=== PATIENT | male | born 1945 | race Caucasian/White ===

== ENCOUNTER 2018-10-13 12:31 | Inpatient (IN) ==
[2018-10-13] MEDS ORDERED: NS 1,000 ML IV ONE (14:19)
[2018-10-13] MEDS ORDERED: SODIUM CHLORIDE 0.9% INJ PRN (14:19)
[2018-10-13] MEDS: MORPHINE IV PRN ×2 (15:02→20:41)
[2018-10-13] MEDS: PHENERGAN IV PRN ×2 (15:02→20:40)
[2018-10-13] MEDS: LOVENOX SUBQ SCH (15:02)
[2018-10-13] MEDS: NS 1,000 ML IV SCH (16:10)
[2018-10-13] MEDS: FLAGYL 500 MG/NS 500 MG/100 ML IVPB IV SCH ×2 (16:11→20:40)
[2018-10-13] MEDS: HUMALOG SUBQ SCH ×2 (16:18→22:29)
[2018-10-13] MEDS: LEVAQUIN 250 MG/D5W 250 MG/50 ML IVPB IV SCH (17:24)
--- NOTE | 2018-10-13 18:00 | GENERAL SURGERY CONSULTATION ---
DATE: 10/13/2018 REQUESTING PHYSICIAN: Rose Cool MD. REASON FOR CONSULTATION: Consult concerning cholecystitis. HISTORY OF PRESENT ILLNESS: A 73-year-old, male, with past medical history of hypertension, hyperlipidemia, diabetes, presenting now with 24 hour history of initially right lower quadrant, but now right upper quadrant pain associated with nausea, vomiting and diarrhea. He was seen in his primary care physician's office, who sent him for an ultrasound that showed cholecystitis and fatty liver disease. He has been admitted and started on antibiotics. He is still complaining of some right upper quadrant pain. He has never had this pain before. He had some family history of gallbladder disease in an uncle. PAST MEDICAL HISTORY: Hypertension, hyperlipidemia, and diabetes. PAST SURGICAL HISTORY: Includes previous back surgery and ganglion cyst. HOME MEDICATIONS: Full list reviewed. ALLERGIES: None. SOCIAL HISTORY: Lives at home. No alcohol, tobacco. Does do some chewing tobacco. FAMILY HISTORY: Positive for gallbladder disease. REVIEW OF SYSTEMS: A full 10 point review of systems obtained and negative except as specified in HPI. PHYSICAL EXAMINATION: Vital Signs: Patient is currently afebrile. His vital signs stable. General: No acute distress. Alert, interactive, obese male. Looks stated age. HEENT: Normocephalic, atraumatic. Pupils equal, round, reactive to light. Mucous membranes moist. Oropharynx benign. Neck: Supple. Trachea midline. Cardiovascular: Regular rate and rhythm. Lungs: Grossly clear. Abdomen: Soft, tender to palpation right upper quadrant. Extremities: Moves all extremities. Neurologic: Grossly intact. Skin: No signs of jaundice. Vascular: All extremities perfused. LABORATORY: White blood cell count 27, hematocrit 45, platelet count 206. Bilirubin is 1.17, AST, ALT and alkaline phosphatase are all normal. Ultrasound as noted above. ASSESSMENT AND PLAN: A 73-year-old with fatty liver disease and likely cholecystitis. 1. Cholecystitis. At this time, we will plan on surgical intervention. He has been started on antibiotics. Discussed with him the risks, benefits, alternatives of surgical intervention. Risks including, but not limited to bleeding, infection, risk of anesthesia, risk of common bile duct injury, risk of bile leak. Risk of damage to other tissues, need to do a liver biopsy and need for drain potentially postoperatively. He voiced understanding and wished to proceed with the procedure. All questions were answered. 2. Fatty liver disease. At this time could be multifactorial, but since we are already in there, removing his gallbladder, we will plan on getting a liver biopsy. This was all discussed with the family. His primary care physician, Dr. Cool, was also in the room. cc: MD Rose Bell MD
[2018-10-13] MEDS: ZOCOR PO SCH (20:40)
[2018-10-13] MEDS: CYMBALTA PO SCH (20:40)
[2018-10-14] MEDS: NS 1,000 ML IV SCH ×3 (02:00→21:30)
[2018-10-14] MEDS: FLAGYL 500 MG/NS 500 MG/100 ML IVPB IV SCH ×4 (03:14→21:29)
[2018-10-14] MEDS: PHENERGAN IV PRN (03:14)
[2018-10-14] MEDS: MORPHINE IV PRN (03:14)
--- NOTE | 2018-10-14 05:44 | GENERAL SURGERY PROGRESS NOTE ---
DATE: 10/14/2018 SUBJECTIVE: Patient seems to be doing okay. He is hurting a little bit less than he was. OBJECTIVE: Vital Signs: The patient is currently afebrile. His vital signs are stable. General Examination: No acute distress. HEENT: Normocephalic, atraumatic. Pupils equal, round, reactive to light. Mucous membranes moist. Oropharynx benign. Neck: Supple. Trachea midline. Cardiovascular: Regular rate and rhythm. Lungs: Grossly clear. Abdomen: Soft. Tender to palpation in the right upper quadrant. Extremities: Moves all extremities. Neurologic: Grossly intact. Skin: No signs of jaundice. Vascular: All extremities perfused. Laboratory: None this morning as of yet. ASSESSMENT AND PLAN: A 73-year-old with likely cholecystitis and nonalcoholic steatohepatitis. Cholecystitis. At this time, we will plan on surgical intervention this morning. I did discuss and document with him yesterday the risks, benefits, and alternatives of the procedure. We will also get a liver biopsy. cc: MD Rose Bell MD
[2018-10-14] MEDS: HUMALOG SUBQ SCH ×4 (06:14→21:00)
[2018-10-14 06:31] LABS: BASO# 0.01 X1000 (0.0-0.2); EOS# 0.01 X1000 (0.0-0.7); HEMATOCRIT 39.6 % (42.0-52.0); HEMOGLOBIN 13.2 g/dL (14.0-18.0); IMM GRAN% 0.5 % (0.0-0.5); LYMPH# 0.86 X1000 (1.2-3.4); LYMPH% 4.3 % (20.5-51.1); MCH 32.7 PG (27-31); MCHC 33.3 g/dL (33-37); MONO# 1.77 X1000 (0.11-0.59); MONO% 8.8 % (1.7-9.3); MPV 12.5 FL (7.4-10.4); NEUT# 17.41 X1000 (1.4-6.5); NEUT% 86.4 % (42.2-75.2); PLT 175 X1000 (130-400); RBC 4.04 XMIL (4.7-6.1); RDW 12.1 % (11.5-14.5); WBC 20.16 X1000 (4.8-10.8)
[2018-10-14 06:32] LABS: CREATININE 1.7 mg/dL (0.7-1.2); POTASSIUM 4.5 mmol/L (3.5-5.1)
[2018-10-14 07:07] LABS: LYMPHS 5 % (21-51); MONO 7 % (1-9); SEGS 88 % (42-75)
[2018-10-14] MEDS ORDERED: DIPRIVAN 1% ONE (08:29)
[2018-10-14] MEDS ORDERED: SENSORCAINE 0.5%-EPI 1:200,000 ONE (08:29)
[2018-10-14] MEDS ORDERED: FENTANYL ONE (08:29)
[2018-10-14] MEDS ORDERED: LR 1,000 ML ONE (08:30)
[2018-10-14] MEDS ORDERED: SODIUM CHLORIDE 0.9% ONE (08:30)
--- NOTE | 2018-10-14 08:32 | EKG Report ---
Test Performed on : 10/14/2018 08:26:18 AM Test Reason : doctor ordered Blood Pressure : / mmHG Vent. Rate : 088 BPM Atrial Rate : 088 BPM P-R Int : 178 ms QRS Dur : 138 ms QT Int : 398 ms P-R-T Axes : 031 -68 023 degrees QTc Int : 481 ms Normal sinus rhythm. Right bundle branch block Left anterior fascicular block Bifascicular block Abnormal ECG No previous ECGs available Confirmed by Chaka Nieves MD ([id number]) on 10/15/2018 7:01:28 AM
[2018-10-14] MEDS ORDERED: XYLOCAINE-MPF 2% ONE (08:33)
[2018-10-14] MEDS ORDERED: TRANDOLAPRIL PO SCH (09:00)
[2018-10-14] MEDS ORDERED: VERAPAMIL HCL PO SCH (09:00)
[2018-10-14] MEDS ORDERED: ZOFRAN ONE (09:47)
[2018-10-14] MEDS ORDERED: NORCURON ONE (09:47)
[2018-10-14] MEDS ORDERED: QUELICIN (DOSE) ONE (09:47)
[2018-10-14] MEDS ORDERED: ROBINUL ONE (10:23)
[2018-10-14] MEDS ORDERED: NEOSTIGMINE ONE (10:23)
--- NOTE | 2018-10-14 11:11 | OPERATIVE NOTE ---
PROCEDURE DATE: 10/14/2018 PREOPERATIVE DIAGNOSES: 1. Cholecystitis. 2. Nonalcoholic steatohepatitis. POSTOPERATIVE DIAGNOSES: 1. Gangrenous cholecystitis. 2. Nonalcoholic steatohepatitis. PROCEDURES: 1. Laparoscopic cholecystectomy. 2. Laparoscopic wedge resection of segment 4 of the liver. SURGEON: Rodney Wilson MD. WAREHOUSE ASSOCIATE DRIVER: None. ANESTHESIA: General endotracheal. INTRAOPERATIVE FINDINGS: Very inflamed gallbladder with gangrenous areas in the wall, very difficult anatomy. I was able to isolate what looked like a cystic duct and cystic artery, but definitive anatomy was difficult to define. COMPLICATIONS AT THE TIME OF THIS DICTATION.: None. ESTIMATED BLOOD LOSS: 50 mL. SPECIMENS REMOVED: Gallbladder and liver biopsy. DRAINS: 19-Chinese drain. BRIEF HISTORY: A 73-year-old gentleman presenting with abdominal pain. Imaging confirmed cholecystitis. It was felt that he would benefit from a cholecystectomy. The risks, benefits, and alternatives were discussed and documented in chart. All questions were answered. DESCRIPTION OF PROCEDURE IN DETAIL: After informed consent was obtained, the patient was brought to the operative theater, transferred to the operative table, placed in supine position. General endotracheal anesthesia was then performed without complication. A formal time-out was then performed confirming patient, date, procedure. All were in agreement. At that time, attention was given to the abdomen. Given his body habitus, we elected to go supraumbilical over the first trocar site. Then using the Optiview technique, we then inserted an 11 mm trocar. We then insufflated the abdomen after connecting insufflation and established pneumoperitoneum. We then placed 3 more trocars, all 5 mm, 1 in the subxiphoid and 2 in the right upper quadrant. Using these, we identified the gallbladder, which was densely inflamed. We had to take a lot of time to meticulously dissect off the fat from the inflamed gallbladder. We had to drain it also to get some ability to grab it. We were able to grab it and direct it cephalad. I did have to change to a 45 degree angled scope to identify the anatomy, but even then the anatomy was very difficult. We were able to come across what looked like the cystic duct very close to the gallbladder. I elected to go as close to the gallbladder as I could. I placed 2 clips in what looked like the cystic duct and 1 clip essentially on the gallbladder and transected it. I did not see any active drainage of bile, except from the gallbladder itself. We then found the artery and doubly clipped and ligated it. Then using essentially traction, we were able to avulse the gallbladder off the gallbladder fossa, but there was no active bleeding. The gallbladder again was densely inflamed and necrotic consistent with gangrenous cholecystitis. Again, it was very difficult to identify the anatomy, but I felt as though we were safe in our dissection. We then did a laparoscopic wedge resection of segment 4 using electrocautery with scissors. We dissected and removed this area. We maintained hemostasis with electrocautery and we were able to see no active drainage of bile. We irrigated out the abdomen copiously as best as we could. It was again very inflamed, very difficult anatomy. Given this and the difficulty identify the cystic duct, I elected to leave a drain tunneled from the most lateral trocar site, placed it in the gallbladder fossa, sutured in place. We then closed the infraumbilical incision which had to be enlarged significantly to accommodate the gallbladder and the liver, brought out through an endobag. We closed it with multiple stitches of [id number]. He had very poor fascia. We then irrigated out the wound and then closed the remaining port sites with 4-0 Monocryl. The patient tolerated the procedure well, was transferred back to the recovery room in stable condition. I did update his family and his primary care physician. cc: MD Rose Bell MD
[2018-10-14] MEDS: MORPHINE ONE ×3 (11:14→11:27)
[2018-10-14] MEDS ORDERED: MORPHINE ONE (11:48)
--- NOTE | 2018-10-14 12:50 | PROGRESS NOTE ---
DATE: 10/14/2018 SUBJECTIVE: Mr. Rad Eugene was admitted to [facility] with acute gangrenous cholecystitis. He continues with mild to moderate right upper quadrant pain and nausea. His pain was better controlled on IV morphine. He took Phenergan on an as-needed basis. He also was noted to have acute on chronic renal failure. His creatinine was 2.2 on admission. We have bolused him with fluids, and his creatinine had dropped to 1.7. His urine output was in excess of 1200 mL. Blood sugars are fluctuating; sugars are ranging from 150 to 222. OBJECTIVE: Vital signs: He is afebrile, pulse 105, respiratory rate 15, BP 146/42. Cardiovascular: Tachycardic. Regular S1, S2. Lungs: Clear. Abdomen: Hypoactive bowel sounds with marked right upper quadrant tenderness to deep palpation. No rebound or guarding. LABORATORY DATA: Various laboratory studies were obtained. A CBC demonstrated a white count of 20,000, hemoglobin 13.2, hematocrit 39.6, and a platelet count of 175,000. Electrolytes demonstrated the following: Sodium 135, potassium 4.5, chloride 100. BUN 43, creatinine 1.7. ASSESSMENT AND PLAN: 1. Acute gangrenous cholecystitis. We will continue to hold him n.p.o. We will continue broad- spectrum antibiotics including Levaquin and Flagyl until his white count normalizes. We will treat his nausea on a p.r.n. basis with Phenergan and use morphine for pain. He is scheduled for a cholecystectomy this morning. 2. Acute renal failure. We will continue fluid resuscitation and recheck a BMP in the morning. cc: Rose Cool MD
[2018-10-14 13:09] LABS: BASO# 0.01 X1000 (0.0-0.2); BASO% 0.1 % (0.0-0.8); EOS# 0.01 X1000 (0.0-0.7); EOS% 0.1 % (0.0-10.0); HEMATOCRIT 38.1 % (42.0-52.0); HEMOGLOBIN 12.9 g/dL (14.0-18.0); IMM GRAN# 0.18 X1000 (0.0-0.04); IMM GRAN% 1.2 % (0.0-0.5); LYMPH# 0.34 X1000 (1.2-3.4); LYMPH% 2.3 % (20.5-51.1); MCH 33.2 PG (27-31); MCHC 33.9 g/dL (33-37); MCV 98.2 FL (81-99); MONO# 1.04 X1000 (0.11-0.59); MONO% 7.1 % (1.7-9.3); MPV 12.1 FL (7.4-10.4); NEUT# 13.01 X1000 (1.4-6.5); NEUT% 89.2 % (42.2-75.2); PLT 156 X1000 (130-400); RBC 3.88 XMIL (4.7-6.1); WBC 14.59 X1000 (4.8-10.8)
[2018-10-14 13:24] LABS: BANDS 8 % (0-1); LARGE PLATELETS 1+; LYMPHS 6 % (21-51); MONO 12 % (1-9); SEGS 70 % (42-75)
[2018-10-14] MEDS: CATAPRES PO SCH (13:40)
[2018-10-14] MEDS: COZAAR PO SCH (13:40)
[2018-10-14] MEDS: ISOPTIN SR PO SCH (13:40)
[2018-10-14] MEDS: MAVIK PO SCH (13:50)
[2018-10-14] MEDS: LOVENOX SUBQ SCH (14:59)
[2018-10-14] MEDS: LEVAQUIN 250 MG/D5W 250 MG/50 ML IVPB IV SCH (15:54)
[2018-10-14] MEDS: NORCO-10 PO PRN ×2 (17:03→21:29)
[2018-10-14] MEDS: ZOCOR PO SCH (21:28)
[2018-10-14] MEDS: CYMBALTA PO SCH (21:28)
[2018-10-14] MEDS: PERIDEX MT SCH (21:30)
[2018-10-15] MEDS: NS 1,000 ML IV SCH ×3 (00:09→17:45)
[2018-10-15] MEDS: FLAGYL 500 MG/NS 500 MG/100 ML IVPB IV SCH ×4 (02:49→22:20)
[2018-10-15] MEDS: NORCO-10 PO PRN ×4 (02:49→22:31)
[2018-10-15] MEDS ORDERED: PNEUMOVAX 23 IM ONE (03:51)
--- NOTE | 2018-10-15 05:44 | GENERAL SURGERY PROGRESS NOTE ---
DATE: 10/15/2018 SUBJECTIVE: Patient seems to be doing okay. He says his pain is much less than it was. OBJECTIVE: Vital Signs: Patient is currently afebrile. His vital signs are stable. General: No acute distress. Cardiovascular: Regular rate and rhythm. Lungs: Grossly clear. Abdomen: Soft, appropriately tender to palpation. Decreased tenderness from the initial presentation. EDUARDA drain in place with serosanguineous output recorded at 105. I do not see any obvious bile in there. ASSESSMENT AND PLAN: A 73-year-old status post laparoscopic cholecystectomy for gangrenous cholecystitis and liver biopsy. Postoperative state. At this time, we will keep Darrick-Potter drain in place. Given how inflamed his gallbladder was I still want to keep him on antibiotics for right now. He seems to be doing okay at this point, I will advance him to a low-fat diet. If he seems to do okay this afternoon, he might be able to be discharged home on p.o. antibiotics. cc: MD Rose Bell MD
[2018-10-15] MEDS: HUMALOG SUBQ SCH ×4 (07:00→22:18)
[2018-10-15 07:02] LABS: CALCIUM 7.8 mg/dL (8.8-10.2); CREATININE 1.7 mg/dL (0.7-1.2); POTASSIUM 4.2 mmol/L (3.5-5.1)
--- NOTE | 2018-10-15 09:21 | PROGRESS NOTE ---
DATE: 10/15/2018 SUBJECTIVE: Mr. Eugene is postoperative day #1 following a laparoscopic cholecystectomy with liver biopsy for acute gangrenous cholecystitis and fatty liver. His abdominal pain has improved significantly. He is no longer having any nausea, vomiting or sharp stabbing abdominal pain. He is tolerating a clear liquid diet. Blood sugars are fluctuating. His sugars have been in the mid 200s. Renal function has improved from a creatinine of 2.2 to a creatinine of 1.7. OBJECTIVE: Vital signs: Temperature 98.6 degrees, pulse 81, respiratory rate 18, BP 121/51. Cardiovascular: Regular rate and rhythm. Lungs: Clear. Abdomen: Mild right upper quadrant tenderness to deep palpation. No rebound or guarding. He has good bowel sounds. ASSESSMENT AND PLAN: 1. Abdominal pain secondary to acute gangrenous cholecystitis, status post laparoscopic cholecystectomy. Clinically, he is improving. We will advance him to a low-fat 1800 calorie ADA diet. We will transition him to oral medicines and increase his activity. He has not had any obvious bile in the Darrick Potter drain. We will continue broad-spectrum antibiotics pending cultures. 2. Type 2 [id number] diabetes mellitus. Blood sugars are too high. We will resume Amaryl 2 mg b.i.d. and add Januvia 50 mg daily. We will continue to pattern sugars and a Humulin R sliding scale. We are awaiting a random insulin level to see if he will need long- term insulin. cc: Rose Cool MD
[2018-10-15] MEDS: PERIDEX MT SCH ×2 (09:40→22:20)
[2018-10-15] MEDS: MAVIK PO SCH (09:40)
[2018-10-15] MEDS: COZAAR PO SCH (09:41)
[2018-10-15] MEDS: ISOPTIN SR PO SCH (09:41)
[2018-10-15] MEDS: CATAPRES PO SCH (09:41)
[2018-10-15] MEDS: AMARYL PO SCH ×2 (12:40→22:20)
[2018-10-15] MEDS: JANUVIA PO SCH (12:40)
[2018-10-15] MEDS: LOVENOX SUBQ SCH (16:10)
[2018-10-15] MEDS: LEVAQUIN 250 MG/D5W 250 MG/50 ML IVPB IV SCH (17:38)
[2018-10-15] MEDS: ZOCOR PO SCH (22:20)
[2018-10-15] MEDS: CYMBALTA PO SCH (22:20)
[2018-10-16] MEDS: NS 1,000 ML IV SCH (05:52)
[2018-10-16] MEDS: FLAGYL 500 MG/NS 500 MG/100 ML IVPB IV SCH (06:03)
[2018-10-16] MEDS ORDERED: HALL'S COUGH LOZENGE MT PRN (06:17)
[2018-10-16 07:19] VITALS: BP 130/54
--- NOTE | 2018-10-16 07:41 | GENERAL SURGERY PROGRESS NOTE ---
DATE: 10/16/2018 SUBJECTIVE: Patient seems to be doing okay. No major issues. OBJECTIVE: Vital Signs: Patient is currently afebrile. His vital signs are stable. General: No acute distress. Cardiovascular: Regular rate and rhythm. Lungs: Grossly clear. Abdomen: Soft, appropriately tender. EDUARDA drain without any obvious bile in it, but has recorded 60 mL in total. ASSESSMENT AND PLAN: A 73-year-old gentleman, status post laparoscopic cholecystectomy. 1. Postoperative state at this time. We will keep his Darrick-Potter drain in place. He seems to be doing okay clinically. I think he can be discharged home. I put prescriptions for pain medicine in his chart. I need to see him back in the office in a week. cc: MD Rose Bell MD
[2018-10-16] MEDS: HUMALOG SUBQ SCH (08:13)
[2018-10-16] MEDS: CATAPRES PO SCH (09:12)
[2018-10-16] MEDS: ISOPTIN SR PO SCH (09:12)
[2018-10-16] MEDS: AMARYL PO SCH (09:12)
[2018-10-16] MEDS: JANUVIA PO SCH (09:12)
[2018-10-16] MEDS: COZAAR PO SCH (09:12)
[2018-10-16] MEDS: MAVIK PO SCH (09:13)
[2018-10-16] MEDS: PERIDEX MT SCH (09:13)
[2018-10-16] MEDS: NORCO-10 PO PRN (09:19)
--- NOTE | 2018-10-24 14:43 | DISCHARGE SUMMARY ---
ADMISSION DATE: 10/13/2018 DISCHARGE DATE: 10/16/2018 DISCHARGE DIAGNOSES: 1. Acute and chronic cholecystitis with necrosis, inflammation and edema. 2. Nausea and vomiting secondary to acute on chronic cholecystitis. 3. Acute renal failure superimposed on stage III chronic renal insufficiency. 4. Essential hypertension. 5. 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 6. Mixed hyperlipidemia. 7. Nonalcoholic steatohepatitis DISCHARGE INSTRUCTIONS: 1. Return to clinic in 1 week to see me, Dr. Osito Cool, in anticipation of a transition of care visit. 2. Activity as tolerated. 3. GI soft diet and advance as tolerated. MEDICATIONS: Bradford 10 1 q. 4 hours p.r.n. pain, Januvia 50 mg daily, Mavik 4 mg daily, verapamil SR 240 mg daily, Amaryl 2 mg b.i.d., Duloxetine 60 mg daily, Losartan 25 mg daily, clonidine 0.1 mg b.i.d., simvastatin 80 mg at bedtime. DISCHARGE PHYSICAL EXAMINATION: General: This is an elderly, 73-year-old gentleman in no apparent distress. He is afebrile. Vital Signs: BP 130/54, pulse 89, respirations 20. CV: Regular rate and rhythm. Lungs: Clear. Abdomen: Soft, nontender, with active bowel sounds. No hepatosplenomegaly. No abdominal bruits. Extremities: Without edema. Mr. Rad Eugene and was admitted to [facility] with right upper quadrant abdominal pain in association with nausea, vomiting and diarrhea. The patient was aggressively rehydrated with normal saline and we began broad-spectrum antibiotics, including Levaquin and Flagyl. INITIAL LABORATORY STUDIES: This demonstrated leukocytosis of 27,000. Electrolytes demonstrated sodium of 133, potassium 5.1, chloride 93. BUN 35, creatinine 2.2, total bilirubin 1.1, amylase 27 and lipase 0.9. X-RAYS: An ultrasound demonstrated a markedly distended, necrotic-appearing gallbladder. HOSPITAL COURSE: Dr. Wilson was consulted to see the patient. He performed a laparoscopic cholecystectomy. His postoperative course was uncomplicated. We resumed a clear liquid diet and advanced his diet as tolerated. He was tolerating a GI soft diet at the time of discharge without nausea, vomiting, diarrhea, worsening abdominal pain. Because of the gangrenous necrotic appearance of the gallbladder, Dr. Wilson felt that he was at a high risk for a bile leak, and a Leola drain was left in place. He will complete an additional course of oral antibiotics as an outpatient and will have the drain removed as an outpatient next week at Dr. Wilson's office. He does have a history of chronic renal insufficiency, which was acutely exacerbated by volume depletion from gastrointestinal losses. We rehydrated him with normal saline. His creatinine dropped from 2.2 to 1.7. I have encouraged him to continue to drink plenty of fluids, and I will recheck a BMP as an outpatient next week. He does have a history of type 2 [id number]-byjttoxrz diabetes mellitus. His blood sugars were fluctuating. An insulin level as compared to a random blood sugar was marginal. I reviewed the 1800 calorie ADA diet in the importance of strict dietary compliance. I asked him to check his sugars twice daily. We will leave him on Amaryl 2 mg b.i.d. because of the renal insufficiency and continue Januvia. Metformin was discontinued. He understands that in all likelihood that if his blood sugars do not improve, that we will either need to switch him entirely to insulin or potentially add a long-acting insulin such as Tresiba or Lantus. Ultrasound showed a fatty liver. He has had a previous hepatitis profile, ferritin level and copper levels which were within normal limits. Dr. Wilson did perform a biopsy. Pathology of the liver biopsy confirmed nonalcoholic steatohepatitis. We will place him on a low carbohydrate diet and I would like to see him lose at least 10% of his body weight. We potentially could use insulin sensitizing agents such as Actos. We will follow liver enzymes as an outpatient. He understands that nonalcoholic steatohepatitis can increase the risk for cirrhosis. Having reached maximum hospital benefit, the patient was discharged in stable condition. cc: Rose Cool MD
== END 2018-10-16 09:26 | disposition home or self-care (01) | DRG 418 ==
LOC: DIRADM → OBSVTOIN 12:31 → 4N 13:18
PROVIDERS: ADMIT Internal Medicine; ATTEND Internal Medicine
CPT/HCPCS: 74019; 74020; 76700; 80048; 80053; 82150; 82948; 83525; 83690; 85025; 85027; 88304; 88307; 88313; 93005; 93010; 94761; 94799; A9270; C1751; J0330; J1650; J1815; J1956; J2270; J2405; J2550; J3010; J7030; J7120; Q9966; Q9967; S0030; XXXXX